=== PATIENT | male | born 1935 | race Caucasian/White ===

== ENCOUNTER 2020-01-09 08:50 | Outpatient (CLI) | payer OTHER, SELFPAY ==
--- NOTE | 2020-01-09 | CT_ITS ---
WS: [id number] CT CHEST TECHNIQUE: Contrast enhanced CT of the chest with coronal and sagittal reformatted images. CLINICAL INFORMATION: PULMONDARY NODULE AND ANEURYSM W/ CHEST PAIN COMPARISON: CT chest 9 20,019 DLP: 801.[address] scans at [facility] use at least one of these dose optimization techniques: automat ed exposure control; mA and/or kV adjustment per patient size (includes targeted exams where dose is matched to clinical indication); or iterative reconstruction. FINDINGS: Mild chronic emphysematous changes. Hyperinflation. Pulmonary nodule in the posterior right upper ape x has increased in size slightly 14.8 x 13.6 mm compared to 12 x 10 mm. This abuts the pleura posteri lucie. Scattered areas of fibrosis. No acute pulmonary infiltrates. Cardiomegaly. Aortic and coronary calcification. No mediastinal or hilar lymphadenopathy. Stable tort uous ectatic thoracic aorta. Stable dissection involving the descending thoracic aorta with aneurysma l dilatation measuring 4.9 x 5.4 cm extending into the upper abdominal aorta. This is not significant ly changed. Stable hepatic cysts. Largest in left hepatic lobe measuring 2.1 CM. Partially visualized renal cysts . Adrenal glands appear normal. CT/CT chest w con* [id number] IMPRESSION: 1. Pulmonary nodule at the right lung apex measures a few millimeters larger today 14.8 x 13.6 mm compared to 12 x 10 mm previous. Recommend 6 month follow- up. 2. No mediastinal or hilar lymphadenopathy. 3. Stable descending thoracic aorta dissection extends into the upper abdomina l aorta appears unchanged. 4. Stable hepatic and partially visualized renal cysts.
[2020-01-09] MEDS: iodixanol 320 mg/mL 100mL Btl IV (09:43)
== END 2020-01-09 08:51 | disposition home or self-care (01) ==
LOC: RADWPI 08:55
PROVIDERS: Family Provider Family Medicine; Visit Provider Family Medicine
DX: R91.1 Solitary pulmonary nodule (principal); R07.9 Chest pain, unspecified; N28.1 Cyst of kidney, acquired; K76.89 Other specified diseases of liver
CPT/HCPCS: 71260; Q9967

== ENCOUNTER 2020-01-12 08:42 | Outpatient (CLI) | payer OTHER, SELFPAY ==
--- NOTE | 2020-01-12 08:58 | CT_ITS ---
WS: [id number] CT ANGIOGRAPHY ABDOMEN AORTA HISTORY: ABDOMINAL AORTIC ANEURYSM, dissection follow-up. TECHNIQUE: CT angiogram with MIP imaging is performed during IV injection. Reformation images reviewe d. All CT scans at [facility] use at least one of these dose optimization techniques: auto mated exposure control; mA and/or kV adjustment per patient size (includes targeted exams where dose is matched to clinical indication); or iterative reconstruction. CONTRAST: Visipaque 320; 95 mL IV. DLP: 2092.92 mGycm COMPARISON: 02/25/2013 Chronic emphysema at the lung bases. Moderate enlargement of the heart chambers. Abdominal aorta: Dissection is first evident in the distal thoracic aorta, 2 to 3 cm above the diaphr agm and extends inferiorly through the abdominal aorta into the proximal RIGHT common iliac artery. A s compared to the prior study probably not a significant increase in extent of the dissection. False and true lumens are both opacified. False lumen supplies the celiac axis and the renal arteries. Ther e is good enhancement of the kidneys. Bilateral renal artery stents are both opacified. Kidneys are e nhancing normally. There are several bilateral renal cysts with no solid mass. The largest cyst from the lower pole of the RIGHT kidney measures 4.8 cm. Maximum diameter of the aorta is suprarenal measu ring 4.7 cm. Similar measurement of 4.4 cm on the prior study indicating a very slight increase in si ze. Aorta is tortuous and ectatic with heavy calcified plaque. Hepatic cysts. No solid mass. Gallbladder is negative. Spleen is abnormal with granulomata and lobula ricci. Similar to the prior study. Atrophic pancreas. No adrenal mass. Visualized GI tract demonstrates constipation. No adenopathy or ascites. No periaortic fluid. Prostate seed implants on the senior field service engineer radiograph. Moderate LEFT convex curvature lumbar spine. Severe l oss of disc space at L1-[address]/CT angio abdomen [id number] IMPRESSION: 1. Type B aortic dissection is stable since 02/25/2013. 2. Mild increase in size of the suprarenal aorta from 4.4 cm to 4.7 cm. Heavy calcified plaque. 3. True and false lumens of the dissection are enhancing.
== END 2020-01-12 08:43 | disposition home or self-care (01) ==
LOC: RADWPI 08:43
PROVIDERS: Family Provider Family Medicine; Visit Provider Family Medicine
DX: I71.4 Abdominal aortic aneurysm, without rupture (principal)
CPT/HCPCS: 74175; Q9967

== ENCOUNTER 2020-03-09 07:26 | Outpatient (CLI) | payer OTHER, SELFPAY ==
[2020-03-09 07:45] VITALS: BMI 28.1
--- NOTE | 2020-03-09 07:56 | ECG_ITS ---
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 Interpretive Statements NAME OF STUDY: LEXISCAN SESTAMIBI STRESS TEST INDICATION: [Chest Pain] Procedure: At the baseline, blood pressure was 127/82 mmHg with a heart rate of 50 bpm. The electrocardiogram showed normal sinus rhythm, left axis deviation, incomplete right bundle branch block with specific ST-T wave changes. The Lexiscan was infused over a period of 20 seconds. A total of 0.4 mg of Lexiscan was infused. The stress phase was continued for a total of 5 minutes. Heart rate at the end of stress phase was 62 bpm, with a blood pressure of 126/60 mmHg. The EKG at the peak infusion revealed sinus rhythm with no significant ST-T wave changes. Patient had occasional PVCs. Sestamibi was injected 20 seconds after the Lexiscan infusion. Blood pressure at the end of recovery phase was 127/70 mmHg with a heart rate of 59 bpm. EKG demonstrated PVCs. Conclusion: 1. Normal EKG response to Lexiscan infusion. 2. No Lexiscan induced chest pain or cardiac arrhythmia. 3. Normal blood pressure and heart rate response. 4. Sestamibi/sestamibi perfusion scan pending; see separate report. Electronically Signed On 03-09-2020 10:07:30 ELECTRICIAN SUBSTATION SUPERVISOR by Star Casillas M.D. [email or web address]
--- NOTE | 2020-03-09 07:56 | NMCV_ITS ---
NM tierra perf SPECT r/s* [id number] Yaron Reyes Age: 84 Gender: M : 1935 Exam Date: 03/09/2020 08:42 Ordering Phys: Star Casillas M.D ([email or web address]) Technologist: NINA Vera Exam Location: [facility] Indications: CHEST PAIN STRESS TEST [facility] IMAGE PROTOCOL Rest/Stress 1 Lexiscan Day Radiopharmaceutical Dose (mCi) Administration Site Administered by Rest: Tc-99m 10.3 IV NINA Vera Sestamibi Stress:Tc-99m 31.8 IV NINA Bledsoe Sestamibi Rest: 09-Mar-2020 60 Discovery 630 Stress: 09-Mar-2020 30 Discovery 630 0.4mg Lexiscan. Images obtained in supine and prone position. SPECT RESULTS Technical Quality: Excellent Raw Data Analysis: Normal Image Corrections: No attenuation or motion correction applied Summed Stress Score: 3 Summed Rest Score: 2 Summed Difference Score: 1 PERFUSION FINDINGS There is a moderate-sized, severe in intensity fixed perfusion defect in the apical lateral wall. This could represent old infarct. There is some randy- infarct ischemia noted. FUNCTIONAL RESULTS (calculated via Gated SPECT) Stress Image LV EF (%): 59 Stress EDV (mL):162 TID: 0.95 Stress ESV (mL):66 FUNCTIONAL FINDINGS: There is normal left ventricular systolic function. IMPRESSIONS 1. Myocardial perfusion defect is noted in apical lateral wall and is fixed with some periinfarct ischemia. 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 2. LV systolic function is normal with EF of 59%. Star Casillas MD (Electronically Signed) Final Date: 16 March 2020 16:38 S
--- NOTE | 2020-03-09 09:22 | SUR.PREOP ---
Patient reports no pain or discomfort prior to the start of the procedure.
[2020-03-09] MEDS: regadenoson 0.4 Mg/5 ml Syringe IVP (09:36)
[2020-03-09 09:47] VITALS: BP 127/70; PULSE 59
== END 2020-03-09 07:27 | disposition home or self-care (01) ==
LOC: RAD 07:30 → CDL 07:38
PROVIDERS: PCP Family Medicine; Visit Provider Internal Medicine
DX: R07.9 Chest pain, unspecified (principal)
CPT/HCPCS: 78452; 93017; A9500; J2785

== ENCOUNTER 2020-06-02 09:43 | Day surgery (SDC) | payer OTHER, SELFPAY ==
[2020-05-31 15:08] VITALS: BMI 30.2
[2020-06-02 09:54] VITALS: BP 123/67; PULSE 64; RESP 16; TEMP 36.3; O2SAT 98
[2020-06-02] MEDS: sodium chloride 0.9% 1,000 ML 30 ML IV (10:10)
--- NOTE | 2020-06-02 10:29 | ANES.PREANE2 ---
Pre-Anesthetic Assessment Pre-Anesthetic Assessment: Height/Weight: Height 1.7 m Weight 87.543 kg Temp Pulse Resp BP Pulse Ox 97.3 F L 64 16 123/67 98 06/02/20 09:54 06/02/20 09:54 06/02/20 09:54 06/02/20 09:54 06/02/20 09:54 Preop Diagnosis: Bleeding per rectum Proposed Procedure: Operation Date: 06/02/20 09:45 Proposed Procedures p EGD 70159 11182 D64.9 R19.4(Not Applicable) - Stephon Martinez MD s Colonoscopy(Not Applicable) - Stephon Martinez MD Was Beta Henny taken within 24 hours: Yes Last intake: Intake Last Liquid Date 06/01/20 Last Liquid Time 21:00 Last Solid Date 06/01/20 Last Solid Time 08:00 Social: Social History: No alcohol and No tobacco Exam: Pre-Anes Outpt Exam: alert, oriented x 3, clear to auscultation bilaterally and regular rate & rhythm Airway: Submandibular: WNL Cervical ROM: WNL MP: 2 CV/HEM: CV/HEM: HTN and PVD Comments: Aortic dissection repair Metabolic: Metabolic: DM Anesthetic Plan: ASA status: 3 Anesthesia: MAC Risk of > 500 ml blood loss (7ml/kg in children): No Meds/Allergies Current Medications: Current Medications Generic Name Dose Route Start Last Admin Trade Name Freq PRN Reason Stop Dose Admin Sodium Chloride 1,000 mls @ 30 ml s/hr 06/02/20 09:45 06/02/20 10:10 Sodium Chloride 0.9% IV 30 mls/hr .Q24H AMY Administration PFSH Anesthesia PFSH: Medical History Diabetes History of aortic dissection Hyperlipidemia Hypertension Surgical History S/P aortic dissection repair Social History Smoking and tobacco status: former smoker Alcohol intake: current Alcohol intake frequency: few times a month Alcohol type: beer Desire information about alcohol rehabilitation?: No Data Anesthesia Cardiac Studies: No Data to Display
--- NOTE | 2020-06-02 10:48 | W.PM.OPSUD ---
Surgery/Procedure H&P Update DATE OF PROCEDURE: June 02, 2020 DATE H&P PERFORMED: 05/10/20 H&P UPDATE INFORMATION: I have reviewed H&P completed within last 30 days, I have examined patient prior to procedure and No changes to prior documentation PREOP DIAGNOSIS: Bleeding per rectum PRIMARY INDICATION FOR PROCEDURE: The same PLANNED PROCEDURE: Operation Date: 06/02/20 09:45 Proposed Procedures p EGD 12693 15771 D64.9 R19.4(Not Applicable) - Stephon Martinez MD s Colonoscopy(Not Applicable) - Stephon Martinez MD
[2020-06-02 11:56] VITALS: BP 123/73; PULSE 57; RESP 16; TEMP 36.1; O2SAT 96
--- NOTE | 2020-06-02 11:56 | ANE.PACU2 ---
Inpatient post-anesthesia follow up: Airway intact: Yes Vital signs: Temperature 97.3 F Pulse Rate 64 Respiratory Rate 16 Blood Pressure 123/67 Pulse Oximetry 98 Oxygen Delivery Me thod Room Air Oxygen Flow Rate Fraction of Inspir ed Oxygen Hydration adequate: Yes Nausea and vomiting: No Pain level: 1 Mental status: Baseline
--- NOTE | 2020-06-02 11:58 | ANE.PACU2 ---
Inpatient post-anesthesia follow up: Airway intact: Yes Vital signs: Temperature 97 F Pulse Rate 57 Respiratory Rate 16 Blood Pressure 123/73 Pulse Oximetry 96 Oxygen Delivery Me thod Room Air Oxygen Flow Rate Fraction of Inspir ed Oxygen Hydration adequate: Yes Nausea and vomiting: No Pain level: 1 Mental status: Baseline
[2020-06-02 12:14] VITALS: BP 128/72; PULSE 52; RESP 16; O2SAT 98
== END 2020-06-02 12:32 | disposition home or self-care (01) ==
PROVIDERS: PCP Family Medicine; Visit Provider Surgery
PROC: 0DJ08ZZ Inspection of Upper Intestinal Tract, Via Natural or Artificial Opening Endoscopic (ICD-10-PCS; CPT 43235; principal; 2020-06-02 09:45)
PROC: 0DJD8ZZ Inspection of Lower Intestinal Tract, Via Natural or Artificial Opening Endoscopic (ICD-10-PCS; CPT 45378; 2020-06-02 09:45)
DX: K62.5 Hemorrhage of anus and rectum (principal); K57.30 Diverticulosis of large intestine without perforation or abscess without bleeding; D12.2 Benign neoplasm of ascending colon; K21.00 Gastro-esophageal reflux disease with esophagitis, without bleeding; K22.70 Barrett's esophagus without dysplasia; K29.70 Gastritis, unspecified, without bleeding; I10 Essential (primary) hypertension; E11.9 Type 2 diabetes mellitus without complications; E78.5 Hyperlipidemia, unspecified; Z87.891 Personal history of nicotine dependence
CPT/HCPCS: 12345; 43239; 45380; 88305; J2704; J7030

== ENCOUNTER 2020-09-30 07:59 | Outpatient (CLI) | payer OTHER, SELFPAY ==
--- NOTE | 2020-09-30 08:30 | CT_ITS ---
WS: [id number] CTA ABDOMEN PELVIS TECHNIQUE: Noncontrast plus contrast enhanced CTA of the abdominal aorta with coronal and sagittal re formatted images and additional MIP Images. CLINICAL INFORMATION: I71.4 - Abdominal aortic aneurysm, without rupture COMPARISON: CTA January 12, 2020 DLP: 1883.[address] scans at [facility] use at least one of these dose optimization techniques: automat ed exposure control; mA and/or kV adjustment per patient size (includes targeted exams where dose is matched to clinical indication); or iterative reconstruction. FINDINGS: Again seen is the type B aortic dissection with aneurysmal dilatation of the lower thoracic and upper abdominal aorta. Dissection extends into the distal thoracic aorta and into the proximal r ight common iliac artery unchanged from previous. Contrast opacification of the true and false lumens . Celiac axis, SMA, HERMAN, and renal arteries arise from the false lumen and are normally opacified. No rmal renal parenchymal enhancement. Bilateral renal artery stents.Stable aneurysmal dilatation of the lower thoracic and suprarenal abdominal aorta measuring 4.7 x 4.9 cm Bilateral renal cysts. Largest cyst lower pole right kidney measures 5.0cm stable from previous Prost ate brachytherapy implants. Lumbar curve convex left. Incidental hepatic cysts. Normal gallbladder. S plenic granulomas. Fatty atrophy of the pancreas. Normal adrenal glands. No abdominal or pelvic lymph adenopathy. Lung bases are well aerated. Sigmoid diverticulosis. Fat-containing umbilical hernia. CT/CT angio abdomen pelvis [id number] IMPRESSION: 1. Tortuous abdominal aorta with stable type B aortic dissection. This is unch anged since January 12, 2020. 2. Stable aneurysmal dilatation of the lower thoracic and suprarenal abdominal aorta measuring 4.7 x 4.9cm 3. Contrast opacification of the true and false lumens. Celiac axis, SMA, HERMAN, and renal arteries arise from the false lumen and are normally opacified. 4. Normal renal parenchymal enhancement. Bilateral renal artery stents.
[2020-09-30 08:33] LABS: Blood Urea Nitrogen 24 mg/dL (8-23)
[2020-09-30] MEDS: iohexol 350 mg/mL 100 mL Btl IV (08:51)
== END 2020-09-30 08:00 | disposition home or self-care (01) ==
PROVIDERS: PCP Family Medicine; Visit Provider Thoracic Surgery (Cardiothoracic Vascular Surgery)
DX: I71.4 Abdominal aortic aneurysm, without rupture (principal); Q25.46 Tortuous aortic arch; I71.2 Thoracic aortic aneurysm, without rupture
CPT/HCPCS: 74174; 82565; 84520; Q9967

== ENCOUNTER 2020-10-27 08:57 | Outpatient (CLI) | payer OTHER, SELFPAY ==
--- NOTE | 2020-10-27 09:00 | CT_ITS ---
WS: [id number] CT CHEST TECHNIQUE: Contrast enhanced CT of the chest with coronal and sagittal reformatted images. CLINICAL INFORMATION: PULMONARY NODULE COMPARISON: CT January 09, 2020 DLP: 894.[address] scans at use at least one of these dose optimization techniques: automat ed exposure control; mA and/or kV adjustment per patient size (includes targeted exams where dose is matched to clinical indication); or iterative reconstruction. FINDINGS: Again seen is the right upper lobe apical subpleural noncalcified pulmonary nodule today me asuring 14.9 x 14.3 mm slightly more prominent compared to previous. This is increased in size since 2019 recommend further evaluation with PET/CT. This is not amenable to CT-guided biopsy due to high a pical location. Thoracic aortic calcification. No mediastinal or hilar lymphadenopathy. Coronary calcification. No mediastinal or hilar lymphadenopathy. Cardiomegaly. Stable tortuous ectatic thoracic aorta. Stable dissection involving the descending thoracic aorta with aneurysmal dilatation measuring 4.9 x 5.5 cm extending into the upper abdominal aorta. This is not significantly changed. Stable hepatic cysts.Pa rtially visualized renal cysts. Adrenal glands appear normal. CT/CT chest w con* [id number] IMPRESSION: 1. Again seen is the right upper lobe apical subpleural noncalcified pulmonary nodule today measuring 14.9 x 14.3 mm slightly more prominent compared to prev ious. This is increased in size since 2019 and recommend further evaluation wit h PET/CT. This is not amenable to CT-guided biopsy due to high apical location 2. No mediastinal or hilar lymphadenopathy. 3. Stable descending thoracic aortic dissection. 4. Stable hepatic and partially visualized renal cyst.
[2020-10-27] MEDS: iohexol 300 mg/mL 100 mL Btl IV (09:18)
== END 2020-10-27 08:58 | disposition home or self-care (01) ==
LOC: RADWPI 08:58
PROVIDERS: PCP Family Medicine; Visit Provider Thoracic Surgery (Cardiothoracic Vascular Surgery)
DX: R91.1 Solitary pulmonary nodule (principal); N28.1 Cyst of kidney, acquired; K76.89 Other specified diseases of liver
CPT/HCPCS: 71260; Q9967

== ENCOUNTER 2021-01-15 11:02 | Emergency (ER) | payer OTHER, SELFPAY ==
[2021-01-15] VITALS (11 sets, daily range): BP systolic 102–149; BP diastolic 61–88; PULSE 51–65; RESP 18–23; TEMP 36.4–36.9; O2SAT 94–96; BMI 30.5
--- NOTE | 2021-01-15 11:10 | CTR_ITS ---
PROCEDURE INFORMATION: Exam: CT Abdomen And Pelvis With Contrast Exam date and time: 01/15/2021 11:10 AM Age: 85 years old Clinical indication: Abdominal pain. Prior abdominal aortic aneurysm dissection repair. Complains of lower abdominal pain and diarrhea. TECHNIQUE: Imaging protocol: Computed tomography of the abdomen and pelvis with contrast. Radiation optimization: All CT scans at this facility use at least one of these dose optimization techniques: automated exposure control; mA and/or kV adjustment per patient size (includes targeted exams where dose is matched to clinical indication); or iterative reconstruction. Contrast material: OMNI 300; Contrast volume: 95 ml; Contrast route: INTRAVENOUS (IV); COMPARISON: CT angio abdomen pelvis [id number] 09/30/2020 8:40 AM RADIATION DOSE METRICS: Total DLP (mGy-cm): 1582.07 FINDINGS: Lungs: There is subpleural scarring at the lung bases. No pericardial effusion. Small hiatal hernia. Liver: Simple hepatic cysts measure up to 2.1 cm. Hepatic hypodensities measuring less than 5 mm are too small to accurately characterize and require no follow-up. Gallbladder and bile ducts: The gallbladder is unremarkable. Pancreas: The pancreas is unremarkable. Spleen: The spleen is unremarkable. Adrenal glands: The adrenal glands are unremarkable. Kidneys and ureters: Simple renal cysts measure up to 5.4 cm. An indeterminate right renal lesion measures 1.1 cm. An indeterminate left renal lesion measures 1.8 cm. No hydronephrosis is seen. 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 There is no evidence of rupture. Bilateral renal artery stents are noted. Stomach and bowel: The stomach and small bowel are unremarkable.. Colonic diverticulosis without evidence of acute diverticulitis. There is wall thickening involving the splenic flexure and descending colon suspicious for infectious or inflammatory colitis. Appendix: The appendix is not identified. Intraperitoneal space: No free intraperitoneal air is seen. 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 An aortic dissection is noted extending the length of the abdominal aorta and further extension into the right common iliac artery. This appears similar to prior. There is no evidence of rupture. Lymph nodes: No retroperitoneal lymphadenopathy. Urinary bladder: The bladder is unremarkable. Reproductive: Prostate brachytherapy seeds are noted. Bones/joints: No acute fracture is identified. Soft tissues: Small fat containing left inguinal hernia. Small fat containing inguinal hernia. CT/CT abdomen pelvis w con* [id number] IMPRESSION: 1. There is wall thickening involving the splenic flexure and descending colon suspicious for infectious or inflammatory colitis. 2. 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 An aortic dissection is noted extending the length of the abdominal aorta and further extension into the right common iliac artery. This appears similar to prior. There is no evidence of rupture. 3. 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 There is no evidence of rupture. 4. Indeterminate bilateral renal lesions. Recommend nonemergent renal mass protocol MR abdomen with and without contrast to further assess. 5. Colonic diverticulosis without evidence of acute diverticulitis. COMMENTS: Consistent with the [employer]'s Incidental Findings Committee white paper (J Am Conchis Radiol 2018): Any incidental renal lesion less than 1 cm or classified as too small to characterize, or any incidental cystic renal lesion characterized as simple-appearing, is likely benign. No follow-up imaging is recommended for these lesions per consensus recommendations based on imaging criteria. Radiation Dose CTDIVOL = (mGy): DLP = 1582.07 (mGy-cm)
--- NOTE | 2021-01-15 12:02 | W.ED.ABDPA2 ---
HPI - Abdominal Pain General: Chief Complaint: Abdominal Pain Stated Complaint: LOW ABD PAIN; DIARRHEA Time Seen by Provider: 01/15/21 11:09 History of Present Illness: HPI narrative: 85-year-old male presents emergency room complaining of abdominal pain for the last 3 months intermittently last few days is 1 more problem some. 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 He has been having some diarrhea recently. Denies any hematochezia although he did self some earlier this year which triggered the evaluation with the colonoscopies. Denies any dysuria urgency or frequency. MD elicited complaint: abdominal pain Pertinent past history: none Onset (ago): month(s) (3) Pain Consistency: intermittent Location: None Severity: moderate Quality: cramping and aching Radiation: none Exacerbating factors: nothing Relieving factors: nothing Associated Symptoms: Reports anorexia, bloating, diarrhea, hematochezia (Evaluated in May this year has not recurred), nausea and poor appetite; Denies belching, change in bowel habits, change in stool character, chills, coffee ground emesis, constipation, GI cramping, dyspepsia, dysuria, excessive flatus, fever(s), heartburn, hematuria, hematemesis, fecal incontinence, loose stools, melena, syncope and vomiting Review of Systems Const: Denies: fever(s) or chills ENMT: Denies: throat pain, ear or mastoid pain, nasal discharge or nasal congestion Card: Denies: syncope Resp: Denies: dyspnea, productive cough or non-productive cough GI: Reports: nausea, diarrhea, bloating and hematochezia (Evaluated in May this year has not recurred); Denies: vomiting, hematemesis, coffee ground emesis, heartburn, constipation, GI cramping, belching, excessive flatus, fecal incontinence, change in bowel habits, change in stool character or melena : Denies: dysuria or hematuria Skin/Breast: Denies: rash or pruritus PFSH ED PFSH: Medical History Diabetes History of aortic dissection Hyperlipidemia Hypertension Right upper lobe pulmonary nodule Surgical History S/P aortic dissection repair Social History Smoking and tobacco status: former smoker Alcohol intake: current Alcohol intake frequency: few times a month Alcohol type: beer Desire information about alcohol rehabilitation?: No Physical Exam Const: COMMON NORMALS: no acute distress GENERAL APPEARANCE: cooperative and comfortable ORIENTATION/CONSCIOUSNESS: Yes awake, Yes oriented to person, Yes oriented to place and Yes oriented to time HENMT: COMMON NORMALS: normocephalic, atraumatic and hearing grossly normal bilaterally HEAD & SCALP: normocephalic and atraumatic Neck/C-Spine: COMMON NORMALS: no JVD Resp: COMMON NORMALS: normal respiratory effort, No retractions, No use of accessory muscles and clear to auscultation bilaterally AUSCULTATION: clear to auscultation bilaterally Cardio: COMMON NORMALS: no JVD, regular rate, regular rhythm and No murmurs present (Cardio) RATE: regular rate RHYTHM: regular rhythm GI: COMMON NORMALS: Soft to palpation and No hepatosplenomegaly present AUSCULTATION: Yes normoactive bowel sounds PALPATION: Yes Soft to palpation, No Tenderness to palpation present (GI), No Guarding due to palpation present (GI) and Yes No hepatosplenomegaly present Extremity: COMMON NORMALS: normal to inspection, capillary refill normal, no clubbing, cyanosis or edema, no calf tenderness and no pedal edema Neuro: SENSORIUM/ORIENTATION: Yes oriented to person, Yes oriented to place and Yes oriented to time Skin: COMMON NORMALS: no rashes or lesions noted GENERAL SKIN EXAM: no rashes or lesions noted Course Vital Signs: Vital signs: Vital Signs Temperature 98.4 F 01/15/21 16:50 Pulse Rate 65 01/15/21 16:50 Respiratory Rate 18 01/15/21 16:50 Blood Pressure 149/88 01/15/21 16:50 Pulse Oximetry 94 01/15/21 16:50 MDM - Abdominal Pain MDM Narrative: Medical decision making narrative: Labs reviewed EKG reviewed as on the chart. Believe he has a mild colitis there is no sign of any tumor. When I reviewed the previous colonoscopy colonoscopy made mention of a tubular adenoma but no frankly cancerous findings. He also had Figueroa's esophagus on his EGD. We will start him on Cipro and Flagyl clear liquid diet advance as tolerated follow-up with his primary care. Return if has further problems Lab Data: Labs: Lab Results 01/15/21 01/15/21 01/15/21 11:00 13:33 13:33 WBC 13.8 10^3/uL H 10 ^3/uL (4.0-10.0) RBC 3.66 10^6/uL L 10 ^6/uL (4.1-5.3) Hgb 11.3 g/dL L g/dL (11.7-16.6) Hct 33.5 % L % (42.0-52.0) MCV 91.5 fl fl (80-94) MCH 30.9 pg pg (28.0-34.0) MCHC 33.7 g/dL g/dL (30.0-36.0) RDW 13.5 % % (12.1-15.1) Plt Count 177 10^3/cmm 10^3 /cmm (130-400) MPV 10.0 fL fL (7.4-10.4) Neut % (Auto) 77.7 % % Lymph % (Auto) 11.8 % % [place] % (Auto) 9.4 % % Eos % (Auto) 0.4 % % Baso % (Auto) 0.3 % % Neut # (Auto) 10.76 10^3/uL H 1 0^3/uL (1.8-7.7) Lymph # (Auto) 1.6 10^3/uL 10^3/ uL (0.8-4.8) [place] # (Auto) 1.3 10^3/uL H 10^ 3/uL (0.2-0.9) Eos # (Auto) 0.1 10^3/uL 10^3/ uL (0.0-0.8) Baso # (Auto) 0.0 10^3/uL 10^3/ uL (0.0-0.1) Nucleated RBC % (a uto) 0 % % Nucleated RBCs # 0.0 /100WBC /100W BC Sodium 135 mmol/L L mmol /L (136-145) Potassium 4.0 mmol/L mmol/L (3.5-5.1) Chloride 101 mmol/L mmol/L (98-107) Carbon Dioxide 24 mmol/L mmol/L (22-29) Anion Gap 14.0 (5-19) BUN 20 mg/dL mg/dL (8-23) Creatinine 1.0 mg/dL mg/dL (0.7-1.2) GFR Calculation Not Reportable Glucose 183 mg/dL H mg/dL (65-115) Calculated Osmolal ity 287 mOsm/kg mOsm/ kg (285-295) Lactic Acid Calcium 9.0 mg/dL mg/dL (8.5-10.5) Total Bilirubin 0.4 mg/dL mg/dL (0.15-1.2) AST 20 U/L U/L (0-40) ALT 18 U/L U/L (0-41) Alkaline Phosphata se 72 IU/L IU/L (40-130) Creatine Kinase 138 U/L U/L (39-308) Total Protein 6.4 g/dL L g/dL (6.6-8.7) Albumin 3.8 g/dL g/dL (3.5-5.2) Globulin 2.6 g/dL g/dL (1.3-4.6) Lipase 20 U/L U/L (13-60) Urine Color Yellow (Yellow) Urine Appearance Clear (CLEAR) Urine pH 7 (5-7) Ur Specific Gravit y 1.005 (1.005-1.030) Urine Protein 1+ H (Negative) Urine Glucose (UA) Norm (Normal) Urine Ketones Negative (Negative) Urine Blood Neg (Negative) Urine Nitrate Negative (Negative) Urine Bilirubin 1+ H (Negative) Urine Urobilinogen 1 mg/dL H mg/dL (Negative) Ur Leukocyte Dee ase Negative (Negative) Urine RBC None /hpf /hpf (0-2) Urine WBC None /hpf /hpf (0-5) Ur Squamous Epith Cells None /hpf /hpf (0-5) Amorphous Sediment Not Reportable Urine Bacteria None /hpf /hpf (NONE) Hyaline Casts 0-4 /lpf H /lpf Urine Mucus Trace /hpf /hpf 01/15/21 13:33 WBC RBC Hgb Hct MCV MCH MCHC RDW Plt Count MPV Neut % (Auto) Lymph % (Auto) [place] % (Auto) Eos % (Auto) Baso % (Auto) Neut # (Auto) Lymph # (Auto) [place] # (Auto) Eos # (Auto) Baso # (Auto) Nucleated RBC % (a uto) Nucleated RBCs # Sodium Potassium Chloride Carbon Dioxide Anion Gap BUN Creatinine GFR Calculation Glucose Calculated Osmolal ity Lactic Acid 1.8 mmol/L mmol/L (0.5-2.2) Calcium Total Bilirubin AST ALT Alkaline Phosphata se Creatine Kinase Total Protein Albumin Globulin Lipase Urine Color Urine Appearance Urine pH Ur Specific Gravit y Urine Protein Urine Glucose (UA) Urine Ketones Urine Blood Urine Nitrate Urine Bilirubin Urine Urobilinogen Ur Leukocyte Dee ase Urine RBC Urine WBC Ur Squamous Epith Cells Amorphous Sediment Urine Bacteria Hyaline Casts Urine Mucus Discharge Plan Discharge Patient Disposition: Home Clinical Impression: Colitis Condition: Stable Prescriptions: New Cipro 500 mg tablet 500 mg PO BID Qty: 14 RF: 0 Flagyl 500 mg tablet 500 mg PO BID 7 Days Qty: 14 RF: 0 No Action amlodipine 5 mg tablet 5 mg PO DAILY RF: 0 atenolol 50 mg tablet 50 mg PO DAILY RF: 0 atorvastatin 20 mg tablet 20 mg PO DAILY RF: 0 brimonidine 0.15 % drops 1 drop ophthalmic (eye) Q8H RF: 0 bupropion HCl 300 mg tablet extended release 24 hr 300 mg PO QAM RF: 0 lisinopril 40 mg tablet 40 mg PO DAILY RF: 0 metformin 500 mg tablet 250 mg PO BID RF: 0 tamsulosin 0.4 mg capsule 0.4 mg PO DAILY RF: 0 famotidine 10 mg tablet 10 mg PO DAILY RF: 0 Discharge Orders: Discharge ED (Routine); Ordered 01/15/21 Ordered By: Zay Oshea Referrals: Ruthy Carrillo MD [Primary Care Provider] - Discharge Diet: Usual diet Discharge Activity: Resume usual activity Patient Instructions: Opioid Safety Coding Level of Care Code ED Product Marketing Programs Manager for Chg Fwd Exam Comprehensive
[2021-01-15 12:05] LABS: Add Urine Microscopic? YES; Bilirubin Urine 1+ (Negative); Blood Urine Neg (Negative); Glucose Urine UA Norm (Normal); Ketones Urine Negative (Negative); Leukocyte Esterase Urine Negative (Negative); Nitrate Urine Negative (Negative); Protein Urine 1+ (Negative); Specific Gravity, Urine 1.005 (1.005-1.030); Urine Appearance Clear (CLEAR); Urine Color Yellow (Yellow); Urobilinogen Urine 1 mg/dL (Negative); pH Urine 7 (5-7)
[2021-01-15 12:07] LABS: Hyaline Casts Urine 0-4 /lpf; Mucus Urine TRACE /hpf
[2021-01-15 12:08] LABS: Add Urine Culture? No
[2021-01-15 13:46] LABS: Basophils % 0.3 %; Eosinophils # 0.1 10^3/uL (0.0-0.8); Eosinophils % 0.4 %; Hematocrit 33.5 % (42.0-52.0); Hemoglobin 11.3 g/dL (11.7-16.6); Lymphocytes # 1.6 10^3/uL (0.8-4.8); Lymphocytes % 11.8 %; Mean Corpuscular HGB Conc 33.7 g/dL (30.0-36.0); Mean Corpuscular Hemoglobin 30.9 pg (28.0-34.0); Mean Corpuscular Volume 91.5 fl (80-94); Monocytes # 1.3 10^3/uL (0.2-0.9); Monocytes % 9.4 %; Neutrophils # 10.76 10^3/uL (1.8-7.7); Neutrophils % 77.7 %; Nucleated Red Blood Cells % 0 %; Platelet Count 177 10^3/cmm (130-400); Red Blood Count 3.66 10^6/uL (4.1-5.3); Red Cell Distribution Width 13.5 % (12.1-15.1); White Blood Count 13.8 10^3/uL (4.0-10.0)
[2021-01-15 14:08] LABS: Lactic Sepsis W/Reflex 1.8 mmol/L (0.5-2.2)
[2021-01-15 14:23] LABS: Alanine Aminotransferase 18 U/L (0-41); Albumin Level 3.8 g/dL (3.5-5.2); Alkaline Phosphatase 72 IU/L (40-130); Aspartate Amino Transferase 20 U/L (0-40); Blood Urea Nitrogen 20 mg/dL (8-23); Carbon Dioxide 24 mmol/L (22-29); Chloride 101 mmol/L (98-107); Creatine Phosphokinase 138 U/L (39-308); Globulin 2.6 g/dL (1.3-4.6); Glucose 183 mg/dL (65-115); Lipase 20 U/L (13-60); Osmolality Calculated 287 mOsm/kg (285-295); Sodium 135 mmol/L (136-145); Total Bilirubin 0.4 mg/dL (0.15-1.2); Total Protein 6.4 g/dL (6.6-8.7)
[2021-01-15] MEDS: iohexol 300 mg/mL 100 mL Btl IV (14:38)
--- NOTE | 2021-01-15 14:38 | ECG_ITS ---
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 Measurements Intervals [place] Rate: 48 P: 8 [place]: 243 QRS: -55 QRSD: 165 T: -48 QT: 505 QTc: 451 Interpretive Statements SINUS BRADYCARDIA WITH FIRST DEGREE AV BLOCK RIGHT BUNDLE BRANCH BLOCK [120+ ms QRS DURATION, UPRIGHT V1, 40+ ms S IN I/aVL/V4/V5/V6] LEFT ANTERIOR FASCICULAR BLOCK [QRS AXIS <= -45, QR IN I, RS IN II] VOLTAGE CRITERIA FOR LVH [MEETS CRITERIA IN ONE OF: R(aVL), S(V1), R(V5), R(V5/V6)+S(V1)] MODERATE T-WAVE ABNORMALITY, CONSIDER LATERAL ISCHEMIA [-0.1+ mV T-WAVE IN I/aVL/V5/V6] Compared to ECG 06/13/2018 18:33:53 Right bundle-branch block now present T-wave abnormality still present Possible ischemia still present Electronically Signed On 01-15-2021 20:59:44 CDT by Star Casillas M.D. [email or web address]
--- NOTE | 2021-01-15 15:00 | ECG_ITS ---
[facility] Test Date: 2021-01-15 Pat Name: Yaron Ryees Department: Room: Gender: Male Director Investor Relations: : 1935 Requested By: Zay Reza Order Number: [id number] Sky MD: Star Casillas M.D. Measurements Intervals [place] Rate: 55 P: -44 [place]: 170 QRS: -55 QRSD: 164 T: -26 QT: 471 QTc: 454 Interpretive Statements SINUS BRADYCARDIA WITH OCCASIONAL SUPRAVENTRICULAR PREMATURE COMPLEXES RIGHT BUNDLE BRANCH BLOCK [120+ ms QRS DURATION, UPRIGHT V1, 40+ ms S IN I/aVL/V4/V5/V6] LEFT ANTERIOR FASCICULAR BLOCK [QRS AXIS <= -45, QR IN I, RS IN II] VOLTAGE CRITERIA FOR LVH [MEETS CRITERIA IN ONE OF: R(aVL), S(V1), R(V5), R(V5/V6)+S(V1)] POSSIBLE SEPTAL MYOCARDIAL INFARCTION , PROBABLY OLD [30 ms Q WAVE IN V1/V2] Compared to ECG 01/15/2021 11:24:13 First degree AV block no longer present T-wave abnormality no longer present Possible ischemia no longer present Myocardial infarct finding still present Electronically Signed On 01-15-2021 21:12:25 CDT by Star Casillas M.D. [id number]
== END 2021-01-15 16:51 | disposition home or self-care (01) ==
PROVIDERS: Emergency Provider Family Medicine; PCP Family Medicine
DX: K52.9 Noninfective gastroenteritis and colitis, unspecified (principal); Z79.84 Long term (current) use of oral hypoglycemic drugs; E11.9 Type 2 diabetes mellitus without complications; E78.5 Hyperlipidemia, unspecified; I10 Essential (primary) hypertension; Z87.891 Personal history of nicotine dependence
CPT/HCPCS: 74177; 80053; 81001; 82550; 83605; 83690; 85025; 93005; 99284; Q9967

== ENCOUNTER 2021-02-04 11:38 | Emergency (ER) | payer OTHER, SELFPAY ==
[2021-02-04] VITALS (7 sets, daily range): BP systolic 94–151; BP diastolic 64–82; PULSE 84–96; RESP 18; TEMP 36.8; O2SAT 94–99; BMI 30.5
[2021-02-04 13:53] LABS: Basophils # 0.1 10^3/uL (0.0-0.1); Basophils % 0.4 %; Eosinophils # 0.1 10^3/uL (0.0-0.8); Eosinophils % 0.6 %; Hematocrit 37.5 % (42.0-52.0); Hemoglobin 12.5 g/dL (11.7-16.6); Lymphocytes # 2.5 10^3/uL (0.8-4.8); Lymphocytes % 14.6 %; Mean Corpuscular HGB Conc 33.3 g/dL (30.0-36.0); Mean Corpuscular Hemoglobin 30.7 pg (28.0-34.0); Mean Corpuscular Volume 92.1 fl (80-94); Mean Platelet Volume 10.3 fL (7.4-10.4); Monocytes % 11.6 %; Neutrophils # 12.21 10^3/uL (1.8-7.7); Neutrophils % 72.2 %; Nucleated Red Blood Cells % 0 %; Platelet Count 226 10^3/cmm (130-400); Red Blood Count 4.07 10^6/uL (4.1-5.3); Red Cell Distribution Width 13.6 % (12.1-15.1); White Blood Count 16.9 10^3/uL (4.0-10.0)
[2021-02-04 14:14] LABS: Alanine Aminotransferase 15 U/L (0-41); Albumin Level 4.1 g/dL (3.5-5.2); Alkaline Phosphatase 75 IU/L (40-130); Anion Gap 16.8 (5-19); Aspartate Amino Transferase 16 U/L (0-40); Blood Urea Nitrogen 24 mg/dL (8-23); Calcium 9.4 mg/dL (8.5-10.5); Carbon Dioxide 25 mmol/L (22-29); Chloride 98 mmol/L (98-107); Globulin 3.3 g/dL (1.3-4.6); Glucose 115 mg/dL (65-115); Lipase 18 U/L (13-60); Osmolality Calculated 287 mOsm/kg (285-295); Potassium 3.8 mmol/L (3.5-5.1); Sodium 136 mmol/L (136-145); Total Bilirubin 0.6 mg/dL (0.15-1.2); Total Protein 7.4 g/dL (6.6-8.7)
--- NOTE | 2021-02-04 15:01 | W.ED.ABDPA2 ---
HPI - Abdominal Pain General: Chief Complaint: Abdominal Pain Stated Complaint: SEVERE LOWER ABD PAIN Time Seen by Provider: 02/04/21 14:49 History of Present Illness: HPI narrative: 85 yo male present with compliants of abd pain. Patient was seen on 5 with similar complaints there is concern of colitis on the CT at that time. Patient again voices a concern that he has colon cancer reviewed the records previously had a colonoscopy had a tubular adenoma had some Figueroa's esophagus. [facility]. He completed the oral antibiotics states he still having cramping and discomfort. No ally hematochezia some small amount of blood on the toilet paper when he wipes after bowel movement. MD elicited complaint: abdominal pain Onset (ago): week(s) Pain Consistency: intermittent Location: Diffuse Quality: cramping Radiation: none Migration to: no migration Exacerbating factors: nothing Relieving factors: nothing Associated Symptoms: Reports GI cramping, nausea and poor appetite; Denies anorexia, belching, bloating, change in bowel habits, change in stool character, chills, coffee ground emesis, constipation, diarrhea, dyspepsia, dysuria, excessive flatus, fever(s), heartburn, hematochezia, hematuria, hematemesis, fecal incontinence, loose stools, melena, syncope and vomiting Review of Systems Const: Denies: fever(s) or chills ENMT: Denies: throat pain, ear or mastoid pain, nasal discharge or nasal congestion Card: Denies: syncope Resp: Denies: dyspnea, productive cough or non-productive cough GI: Reports: nausea and GI cramping; Denies: vomiting, hematemesis, coffee ground emesis, heartburn, diarrhea, constipation, bloating, belching, excessive flatus, fecal incontinence, change in bowel habits, change in stool character, hematochezia or melena : Denies: dysuria or hematuria Skin/Breast: Denies: rash or pruritus PFSH ED PFSH: Medical History Diabetes History of aortic dissection Hyperlipidemia Hypertension Right upper lobe pulmonary nodule Surgical History S/P aortic dissection repair Social History (Reviewed 02/04/21 @ 15:29 by ALEJANDRINA Urrutia Smoking and tobacco status: former smoker Alcohol intake: current Alcohol intake frequency: few times a month Alcohol type: beer Desire information about alcohol rehabilitation?: No Physical Exam Const: COMMON NORMALS: no acute distress GENERAL APPEARANCE: cooperative and comfortable ORIENTATION/CONSCIOUSNESS: Yes awake, Yes oriented to person, Yes oriented to place and Yes oriented to time HENMT: COMMON NORMALS: normocephalic, atraumatic and hearing grossly normal bilaterally HEAD & SCALP: normocephalic and atraumatic Neck/C-Spine: COMMON NORMALS: no JVD Resp: COMMON NORMALS: normal respiratory effort, No retractions, No use of accessory muscles and clear to auscultation bilaterally AUSCULTATION: clear to auscultation bilaterally Cardio: COMMON NORMALS: no JVD, regular rate, regular rhythm and No murmurs present (Cardio) RATE: regular rate RHYTHM: regular rhythm GI: COMMON NORMALS: Soft to palpation and No hepatosplenomegaly present AUSCULTATION: Yes normoactive bowel sounds PALPATION: Yes Soft to palpation, No Tenderness to palpation present (GI), No Guarding due to palpation present (GI) and Yes No hepatosplenomegaly present Extremity: COMMON NORMALS: normal to inspection, capillary refill normal, no clubbing, cyanosis or edema, no calf tenderness and no pedal edema Neuro: SENSORIUM/ORIENTATION: Yes oriented to person, Yes oriented to place and Yes oriented to time Skin: COMMON NORMALS: no rashes or lesions noted GENERAL SKIN EXAM: no rashes or lesions noted Course Vital Signs: Vital signs: Vital Signs Temperature 98.3 F 02/04/21 12:10 Pulse Rate 84 02/04/21 15:08 Respiratory Rate 18 02/04/21 15:08 Blood Pressure 131/71 02/04/21 15:45 Pulse Oximetry 95 02/04/21 16:00 MDM - Abdominal Pain MDM Narrative: Medical decision making narrative: Mild diverticulitis will start Augmentin we had previously seen him about 2 weeks ago and tried Cipro and Flagyl he never really resolved from that switch Augmentin hydrocodone Zofran given follow-up with primary care return if has problems. Lab Data: Labs: Lab Results 02/04/21 02/04/21 02/04/21 13:44 13:44 16:05 WBC 16.9 10^3/uL H 10 ^3/uL (4.0-10.0) RBC 4.07 10^6/uL L 10 ^6/uL (4.1-5.3) Hgb 12.5 g/dL g/dL (11.7-16.6) Hct 37.5 % L % (42.0-52.0) MCV 92.1 fl fl (80-94) MCH 30.7 pg pg (28.0-34.0) MCHC 33.3 g/dL g/dL (30.0-36.0) RDW 13.6 % % (12.1-15.1) Plt Count 226 10^3/cmm 10^3 /cmm (130-400) MPV 10.3 fL fL (7.4-10.4) Neut % (Auto) 72.2 % % Lymph % (Auto) 14.6 % % [place] % (Auto) 11.6 % % Eos % (Auto) 0.6 % % Baso % (Auto) 0.4 % % Neut # (Auto) 12.21 10^3/uL H 1 0^3/uL (1.8-7.7) Lymph # (Auto) 2.5 10^3/uL 10^3/ uL (0.8-4.8) [place] # (Auto) 2.0 10^3/uL H 10^ 3/uL (0.2-0.9) Eos # (Auto) 0.1 10^3/uL 10^3/ uL (0.0-0.8) Baso # (Auto) 0.1 10^3/uL 10^3/ uL (0.0-0.1) Nucleated RBC % (a uto) 0 % % Nucleated RBCs # 0.0 /100WBC /100W BC Sodium 136 mmol/L mmol/L (136-145) Potassium 3.8 mmol/L mmol/L (3.5-5.1) Chloride 98 mmol/L mmol/L (98-107) Carbon Dioxide 25 mmol/L mmol/L (22-29) Anion Gap 16.8 (5-19) BUN 24 mg/dL H mg/dL (8-23) Creatinine 1.3 mg/dL H mg/dL (0.7-1.2) GFR Calculation Not Reportable Glucose 115 mg/dL mg/dL (65-115) Calculated Osmolal ity 287 mOsm/kg mOsm/ kg (285-295) Calcium 9.4 mg/dL mg/dL (8.5-10.5) Total Bilirubin 0.6 mg/dL mg/dL (0.15-1.2) AST 16 U/L U/L (0-40) ALT 15 U/L U/L (0-41) Alkaline Phosphata se 75 IU/L IU/L (40-130) Total Protein 7.4 g/dL g/dL (6.6-8.7) Albumin 4.1 g/dL g/dL (3.5-5.2) Globulin 3.3 g/dL g/dL (1.3-4.6) Lipase 18 U/L U/L (13-60) Urine Color Yellow (Yellow) Urine Appearance Clear (CLEAR) Urine pH 5 (5-7) Ur Specific Gravit y 1.010 (1.005-1.030) Urine Protein 1+ H (Negative) Urine Glucose (UA) Norm (Normal) Urine Ketones 1+ H (Negative) Urine Blood Neg (Negative) Urine Nitrate Negative (Negative) Urine Bilirubin 1+ H (Negative) Urine Urobilinogen 1 mg/dL H mg/dL (Negative) Ur Leukocyte Dee ase 2+ H (Negative) Urine RBC 5-10 /hpf H /hpf (0-2) Urine WBC 5-10 /hpf H /hpf (0-5) Ur Squamous Epith Cells 15-25 /hpf H /hpf (0-5) Amorphous Sediment Not Reportable Urine Bacteria 1+ /hpf H /hpf (NONE) Urine Mucus 3+ /hpf /hpf Discharge Plan Discharge Patient Disposition: Home Clinical Impression: Diverticulitis Condition: Stable Prescriptions: New hydrocodone-acetaminophen 5-325 mg tablet 1 tab PO Q6H PRN (Reason: pain) Qty: 20 RF: 0 Zofran 4 mg tablet 4 mg PO Q6H PRN (Reason: nausea and vomiting) Qty: 20 RF: 0 Augmentin 875-125 mg tablet 1 tab PO BID Qty: 20 RF: 0 No Action amlodipine 5 mg tablet 5 mg PO DAILY RF: 0 atenolol 50 mg tablet 50 mg PO DAILY RF: 0 atorvastatin 20 mg tablet 20 mg PO DAILY RF: 0 brimonidine 0.15 % drops 1 drop ophthalmic (eye) Q8H RF: 0 bupropion HCl 300 mg tablet extended release 24 hr 300 mg PO QAM RF: 0 lisinopril 40 mg tablet 40 mg PO DAILY RF: 0 metformin 500 mg tablet 250 mg PO BID RF: 0 tamsulosin 0.4 mg capsule 0.4 mg PO DAILY RF: 0 famotidine 10 mg tablet 10 mg PO DAILY RF: 0 Cipro 500 mg tablet 500 mg PO BID Qty: 14 RF: 0 Discharge Orders: Discharge ED (Routine); Ordered 02/04/21 Ordered By: Zay Oshea Referrals: Ruthy Carrillo MD [Primary Care Provider] - Discharge Diet: Usual diet Discharge Activity: Increase activity as tolerated Patient Instructions: Opioid Safety Activity Restrictions/Additional Instructions: Clear liquid diet for 24 to 48 hours and advance as tolerated. Take small amounts of food with antibiotics. Follow-up with your doctor within the next week. Coding Level of Care Code ED Independent Marketing Consultant for Kade Fwd Exam Comprehensive
--- NOTE | 2021-02-04 15:29 | CT_ITS ---
WS: [id number] CT ABDOMEN AND PELVIS WITH CONTRAST HISTORY: Abdominal pain. TECHNIQUE: Imaging performed of the abdomen and pelvis with IV contrast. Single phase imaging of the abdomen. Coronal and sagittal reformats are submitted. All CT scans at [facility] use at [address] one of these dose optimization techniques: automated exposure control; mA and/or kV adjustment per patient size (includes targeted exams where dose is matched to clinical indication); or iterative re construction. IV CONTRAST: Visipaque 320; 95 mL IV. Oral contrast: No DLP: 1543.48 mGy.cm COMPARISON: 01/15/2021 Lower thorax: Chronic emphysematous changes at the lung bases. Heart is normal size. No hiatal hernia . Liver/biliary system: Numerous low-attenuation masses throughout the liver from hepatic cyst disease. No solid mass. Gallbladder: Normal. No gallstones or wall thickening. No pericholecystic fluid. Pancreas: Mild atrophy. No mass or duct dilatation. Spleen: Small caliber spleen is probably undergone prior infarction or partial splenectomy. Central c alcifications are noted within the remaining spleen. Adrenal glands: Normal. Right kidney: Normal size RIGHT kidney. There are multiple cysts of various sizes throughout the kidn ey. Largest cyst in the lower pole maximum diameter 5.8 cm. No obstruction or solid mass. Left kidney: Mild perinephric stranding with numerous low-attenuation masses. These are too small to characterize. Others are cysts or mildly complex cysts which are stable. No obstruction. 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 Aorta: Patient has known aortic dissection beginning at the level of the diaphragm and extending infe riorly to the aortic bifurcation extending into the proximal RIGHT common iliac artery. There has bee n no progression of this dissection. Heavily calcified aorta. Both false lumen and the true lumen are enhancing. Bilateral renal arterial stents are patent. Heavy calcification continues into the iliac arteries with ectasia and dilatation. Lymphadenopathy: None. Free fluid: None. GI tract: Prior appendectomy. Tortuous overlapping loops of GI tract. There are numerous diverticula in the sigmoid colon with adjacent inflammation. Mild inflammation with no abscess or free air. Abdominal wall: Unremarkable abdominal wall. No hernia. Pelvis: Prostate seed implants. No free fluid in the pelvis or adenopathy. Urinary bladder is normal. Bones: Severe lumbar spondylitic changes. No destructive bone lesions. CT/CT abdomen pelvis w con* [id number] IMPRESSION: 1. Stable dilatation of the abdominal aorta and stable aortic dissection. Enha ncement of both false and true lumens with no interval change or progression. 2. Extensive sigmoid diverticulosis with mild acute diverticulitis. No free ai r or abscess. 3. Hepatic and renal cysts. 4. Normal gallbladder. 5. Prior appendectomy.
[2021-02-04] MEDS: iodixanol 320 mg/mL 100mL Btl IV (15:44)
[2021-02-04 16:26] LABS: Add Urine Microscopic? YES; Bilirubin Urine 1+ (Negative); Blood Urine Neg (Negative); Glucose Urine UA Norm (Normal); Ketones Urine 1+ (Negative); Leukocyte Esterase Urine 2+ (Negative); Nitrate Urine Negative (Negative); Protein Urine 1+ (Negative); Urine Appearance Clear (CLEAR); Urine Color Yellow (Yellow); Urobilinogen Urine 1 mg/dL (Negative); pH Urine 5 (5-7)
[2021-02-04 16:41] LABS: Add Urine Culture? No; Bacteria Urine 1+ /hpf; Mucus Urine 3+ /hpf; Squamous Epithelial Cell Urine 15-25 /hpf (0-5)
== END 2021-02-04 16:37 | disposition home or self-care (01) ==
PROVIDERS: Nurse Practitioner Family; Emergency Provider Family Medicine; PCP Family Medicine
DX: K57.32 Diverticulitis of large intestine without perforation or abscess without bleeding (principal); E78.5 Hyperlipidemia, unspecified; I10 Essential (primary) hypertension; E11.9 Type 2 diabetes mellitus without complications; Z87.891 Personal history of nicotine dependence; Z79.84 Long term (current) use of oral hypoglycemic drugs
CPT/HCPCS: 36415; 74177; 80053; 81001; 83690; 85025; 99283; Q9967

== ENCOUNTER 2021-06-23 08:18 | Outpatient (CLI) | payer OTHER, SELFPAY ==
--- NOTE | 2021-06-23 08:30 | CT_ITS ---
WS: [id number] CTA CHEST, ABDOMEN AND PELVIS. HISTORY: Dissection follow-up. Renal stents. Lung nodule. TECHNIQUE: CT angiogram is performed through the chest, abdomen and pelvis. Precontrast and angiograp hic imaging. Sagittal and coronal reformats have been submitted. MIP imaging also reviewed. All CT s cans at [facility] use at least one of these dose optimization techniques: automated exposure control; mA and/or kV adjustment per patient size (includes targeted exams where dose is matched to c linical indication); or iterative reconstruction. Contrast: Omnipaque 350; 95 cc IV. DLP: 2542.58 mGy-cm. COMPARISON: 02/04/2021, 01/15/2021 and 10/27/2020 Chest CTA: Very minimal increase in size of the well-rounded nodule at the RIGHT lung apex now measur ing 17 x 14 mm as compared to 15 x 14 mm. No additional pulmonary nodules. Thoracic aorta is markedly ectatic atherosclerotic plaque maximum ascending aorta 4.6 cm diameter. No significant increase in s ize since the most recent exams. Great vessels are well-opacified. Again noted is the aortic dissecti on, type B involving the distal descending aorta just above the diaphragm. The true and false lumens are both enhancing. The distal thoracic aorta is ectatic and extends towards the midline. No proximal progression of the dissection. Heart size is moderately enlarged. No filling defect or thrombus in t he LEFT atrial appendage. Normal pulmonary artery with no thrombus. Abdomen CTA: Tortuous aorta. There is continued enhancement of the true and false lumens. The false l umen is smaller caliber in the celiac axis, SMA and renal arteries arise from the false lumen. The la rger lumen is more posterior and also normally enhancing. Dissection continues into the lower thoraci c aorta continues into the proximal RIGHT common iliac artery. No progression or increase in size. At herosclerotic plaque continues into the iliac arteries with ectasia and mild dilatation. No focal ane urysm. Small hiatal hernia. Small low-attenuation lesions within the liver consistent with cysts. These have been present on prior examinations. Gallbladder is negative. Spleen is calcified and atrophic. No ad renal mass. Marked atrophy of the pancreas. Kidneys remain normal size. There are bilateral renal cys ts. No solid mass or obstruction. Some of these cystic masses have mild increased signal suggests the se are probably complex cyst. Overall no increase in size over several prior examinations. Bilateral renal artery stents they are patent. No GI tract obstruction. Numerous diverticula in the descending and sigmoid colon. Pelvic CTA: Good opacification of the iliac arteries. Focal dissection extends into the proximal RIGH T common iliac artery. Otherwise there is ectasia and dilatation but no aneurysm of the internal and external iliac arteries. No free fluid or adenopathy. Brachytherapy seeds are present within the pros hayes. Urinary bladder wall mildly thickened. Similar to the prior studies. Advanced degenerative changes of the thoracic and lumbar spines. Partial disc fusion at L1-2. Retroli sthesis by 3 mm of L2 and L3. No fractures. CT/CT angio chest abdomen pelvis IMPRESSION: 1. 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 No interval change. Both the false and true lumens remain patent. 2. Bilateral proximal renal artery stents are patent. 3. 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 Simila r to prior studies dating back to 06/13/2018. 4. Minimal increase in size of the pulmonary nodule at the RIGHT apex. Nodule measures 17 x 14 mm as compared to 15 x 14 mm on the prior examination from 10/27. 5. Hepatic and renal cysts. 6. Extensive diverticulosis without acute diverticulitis.
[2021-06-23 09:04] LABS: Blood Urea Nitrogen 22 mg/dL (8-23)
[2021-06-23] MEDS: iohexol 350 mg/mL 100 mL Btl IV (09:25)
== END 2021-06-23 08:19 | disposition home or self-care (01) ==
PROVIDERS: PCP Family Medicine; Visit Provider Thoracic Surgery (Cardiothoracic Vascular Surgery)
DX: Z98.890 Other specified postprocedural states (principal); N28.1 Cyst of kidney, acquired; K76.89 Other specified diseases of liver; K57.90 Diverticulosis of intestine, part unspecified, without perforation or abscess without bleeding; I71.2 Thoracic aortic aneurysm, without rupture; R91.1 Solitary pulmonary nodule
CPT/HCPCS: 71275; 74174; 82565; 84520

== ENCOUNTER → 2021-07-01 10:58 | Outpatient (BNVA) | payer OTHER, SELFPAY | PROVIDERS: PCP Family Medicine; Visit Provider Thoracic Surgery (Cardiothoracic Vascular Surgery) | DX: R91.1 Solitary pulmonary nodule (principal); Z87.891 Personal history of nicotine dependence | CPT/HCPCS: 99213 ==

== ENCOUNTER 2022-01-05 08:53 | Outpatient (CLI) | payer OTHER, SELFPAY ==
--- NOTE | 2022-01-05 09:07 | CT_ITS ---
WS: [id number] CT CHEST TECHNIQUE: Contrast enhanced CT of the chest with coronal and sagittal reformatted images. CLINICAL INFORMATION: pulmonary nodule COMPARISON: June 23, 2021 and PET/CT December 11, 2020 DLP: 1359.[address] scans at [facility] use at least one of these dose optimization techniques: automated e xposure control; mA and/or kV adjustment per patient size (includes targeted exams where dose is matc hed to clinical indication); or iterative reconstruction. FINDINGS: Moderate chronic emphysematous changes. No acute pulmonary infiltrates. No focal pneumonia or pleural fluid. Slight fibrosis in the lingula. Previously described nodule RIGHT lung apex is unchanged in a ppearance measuring 1.8 x 1.5 CM. No mediastinal or hilar lymphadenopathy. Vascular calcification. Coronary calcification. Chronic type B aortic dissection in the descending thoracic aorta extending into the upper abdomen is unchanged i n appearance. A few incidental hepatic cysts. Small esophageal hiatal hernia. Adrenal glands are norm al. Renal cysts are partially visualized. No axillary lymphadenopathy. Thoracolumbar scoliosis. Hyper trophic changes thoracic spine. CT/CT chest w con* [id number] IMPRESSION: 1. RIGHT lung apex nodule is unchanged in appearance measuring 1.8 x 1.5 CM. R ecommend continued surveillance with 6-12 month follow-up. 2. No mediastinal or hilar lymphadenopathy. 3. Stable aneurysmal descending thoracic aorta with chronic dissection appears stable.
[2022-01-05 09:51] LABS: Blood Urea Nitrogen 20 mg/dL (8-23)
--- NOTE | 2022-01-05 11:25 | CTR_ITS ---
PROCEDURE INFORMATION: Exam: CT Abdomen With Contrast Exam date and time: 01/05/2022 9:59 AM Age: 86 years old Clinical indication: Condition or disease; Other: Aortic dissection TECHNIQUE: Imaging protocol: Computed tomography of the abdomen with contrast. Radiation optimization: All CT scans at this facility use at least one of these dose optimization techniques: automated exposure control; mA and/or kV adjustment per patient size (includes targeted exams where dose is matched to clinical indication); or iterative reconstruction. Contrast material: OMNI 350; Contrast volume: 95 ml; Contrast route: INTRAVENOUS (IV); COMPARISON: CT abdomen pelvis w con* [id number] 02/04/2021 3:39 PM RADIATION DOSE METRICS: Total DLP (mGy-cm): 1359.81 FINDINGS: Diaphragm: Hiatal hernia is stable. Liver: Stable hepatic cysts. Gallbladder and bile ducts: Normal. No calcified stones. No ductal dilation. Pancreas: Normal. No ductal dilation. Spleen: Normal. No splenomegaly. Adrenal glands: Normal. No mass. Kidneys and ureters: Stable renal cysts. Stomach and bowel: Visualized stomach and bowel are unremarkable. No obstruction. No mucosal thickening. Intraperitoneal space: Unremarkable. No free air. No significant fluid collection. Vasculature: The aorta remains aneurysmal to level the aortic hiatus at 62 by 51 mm extending into the iliac arteries. The dissection appears to extend anterior laterally and anteriorly is aorta descends. It does appear possibly due it extend into the right common iliac artery however, this is not a true angiogram so I cannot be certain. Aorta does remain dilated and this appears stable. Lymph nodes: Unremarkable. No enlarged lymph nodes. Bones/joints: The severe arthritic changes are again seen in the spine without fracture. Mild listhesis. Soft tissues: Unremarkable. Other findings: The chest will be discussed in a separate dictation. CT/CT abdomen w con* [id number] IMPRESSION: There is likely no change however, this is a non angiographic study of the aorta and abdomen being compared to angiographic study of the abdomen.
== END 2022-01-05 08:54 | disposition home or self-care (01) ==
PROVIDERS: PCP Family Medicine; Visit Provider Family Medicine
DX: I71.00 Dissection of unspecified site of aorta (principal); I71.2 Thoracic aortic aneurysm, without rupture; R91.1 Solitary pulmonary nodule
CPT/HCPCS: 36415; 71260; 74160; 82565; 84520

== ENCOUNTER → 2022-02-02 09:47 | Outpatient (BNVA) | payer OTHER, SELFPAY | PROVIDERS: PCP Family Medicine; Visit Provider Thoracic Surgery (Cardiothoracic Vascular Surgery) | DX: R91.1 Solitary pulmonary nodule (principal) | CPT/HCPCS: 99213 ==

== ENCOUNTER 2022-03-02 10:24 | Outpatient (CLI) | payer OTHER, SELFPAY ==
[2022-03-02] MEDS: iohexol 350 mg/mL 500 mL Btl (per mL) IV (10:30)
--- NOTE | 2022-03-02 10:30 | CT_ITS ---
WS: [id number] CT ABDOMEN WITH CONTRAST HISTORY: Z86.79 - Personal history of other diseases of the circulation. Contiguous single phase 5 mm axial imaging performed to the abdomen. Oral contrast has been provided. Coronal and sagittal reformats are submitted. All CT scans at [facility] use at least one of these dose optimization techniques: automated exposure control; mA and/or kV adjustment per patient size (includes targeted exams where dose is matched to clinical indication); or iterative reconstruct ion. CONTRAST: Omnipaque 350; 95 mL IV. DLP: 826.39 mGy.cm COMPARISON: 01/06/2020, 06/24/2019 Lower thorax: Chronic emphysematous changes at the lung bases. Descending thoracic aortic dissection is reidentified. Incompletely visualized on this CT of the abdomen. Very similar configuration to 06/23. There is ectasia and dilatation of the thoracic aorta through the hiatus. Liver: Normal size liver with numerous small scattered cysts. No solid mass. Gallbladder: Normal. Pancreas: Atrophied. Spleen: Small caliber. Atrophied and infarcted. Adrenals: Normal. Right kidney: Normal enhancement. Multiple cortical cysts with the largest measuring 5.6 x 5.9 cm. No obstruction. Left kidney: Normal enhancement. Stable cortical cysts. Aorta: Patient has a known aortic dissection. Both the false and true lumens are enhancing and opacif ied. Good enhancement of the celiac axis and SMA. Short arterial stents in the renal arteries. Dissec tion continues into the proximal RIGHT common iliac artery. Ectasia with no progression distally. GI tract: Stomach is not distended. No small bowel obstruction. The visualized colon is negative for acute process. No adenopathy or free fluid. Abdominal wall: No hernia. Visualized osseous structures: Advanced degenerative changes of the lumbar spine. Fusion across the L 1-[address]/CT abdomen w con* [id number] IMPRESSION: 1. No significant change in aortic dissection on the imaging submitted. Dissec tion begins in the distal thoracic aorta and extends through the abdominal aort a and into the proximal RIGHT common iliac artery. Both lumens are patent and e nhancing. 2. Bilateral renal cysts. 3. Hepatic cysts. 4. No ischemic changes within the kidneys.
== END 2022-03-02 10:25 | disposition home or self-care (01) ==
LOC: RAD 10:24
PROVIDERS: PCP Family Medicine; Visit Provider Thoracic Surgery (Cardiothoracic Vascular Surgery)
DX: Z86.79 Personal history of other diseases of the circulatory system (principal); Q61.02 Congenital multiple renal cysts; K76.89 Other specified diseases of liver
CPT/HCPCS: 74160

== ENCOUNTER 2022-12-26 09:04 | Outpatient (CLI) | payer OTHER, SELFPAY ==
--- NOTE | 2022-12-26 09:17 | CT_ITS ---
WS: [id number] CT ABDOMEN PELVIS TECHNIQUE: Contrast-enhanced CT of the abdomen and pelvis with coronal and sagittal reformatted image s. CLINICAL INFORMATION: ABNORMAL WEIGHT LOSS/NAUSEA COMPARISON: CT 03/02/2022 DLP: 400.[address] scans at [facility] use at least one of these dose optimization techniques: automated e xposure control; mA and/or kV adjustment per patient size (includes targeted exams where dose is matc hed to clinical indication); or iterative reconstruction. FINDINGS: Lung bases are well aerated. Chronic descending thoracic aorta and abdominal aorta dissection. Celiac and SMA remain patent. Bilateral renal artery stents. Normal renal parenchymal enhancement. No hydro nephrosis. Tortuous abdominal aorta. Densely calcified tortuous and ectatic iliac arteries. 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 AP by transverse. Normal renal parenchymal enhancement. Bilateral renal cysts largest in the RIGHT lower pole unchanged measuring 5.6 x 5.4 cm. Diffuse fatty filtration of the liver. Simple hepatic cyst. Portal vein and splenic vein are patent. Normal gallbladder. Fatty atrophy of the pancreas. Small bladder cystocele. Brachytherapy seeds in the prostate. Sigmoid diverticulosis. No evidence of acute diverticulitis. Tiny fat-containing umbilical hernia. Fat-containing LEFT inguinal hernia. Adva nced spondylitic changes lumbar spine. Slight retrolisthesis L2 on L3. IMPRESSION: 1. Overall no significant changes since 03/02/2022. 2. Stable descending thoracic aortic dissection extending into the abdominal aorta and RIGHT proxima l common iliac artery appears unchanged. Both lumens are enhancing. Celiac and SMA are patent. 3. Bilateral renal stents. Normal renal parenchymal enhancement. 4. Simple bilateral renal cysts. 5. Incidental simple hepatic cysts. 6. Sigmoid diverticulosis. 7. Brachytherapy seeds in the prostate. 8. Tiny fat-containing umbilical hernia. Small fat-containing LEFT inguinal hernia.
[2022-12-26] MEDS: iohexol 350 mg/mL 500 mL Btl (per mL) PO (10:25)
[2022-12-26] MEDS: iohexol 350 mg/mL 500 mL Btl (per mL) IV (10:39)
== END 2022-12-26 09:05 | disposition home or self-care (01) ==
PROVIDERS: PCP Family Medicine; Visit Provider Family Medicine
DX: R63.4 Abnormal weight loss (principal); R11.0 Nausea; I71.012 Dissection of descending thoracic aorta; I71.02 Dissection of abdominal aorta; Z96.0 Presence of urogenital implants; N28.1 Cyst of kidney, acquired; K57.30 Diverticulosis of large intestine without perforation or abscess without bleeding; K42.9 Umbilical hernia without obstruction or gangrene
CPT/HCPCS: 74177; Q9967

== ENCOUNTER → 2023-01-09 11:02 | Outpatient (BNVA) | payer OTHER, SELFPAY | PROVIDERS: PCP Family Medicine; Referring Provider Family Medicine; Visit Provider Student in an Organized Health Care Education/Training Program | DX: M25.552 Pain in left hip; M54.50 Low back pain, unspecified | CPT/HCPCS: 73502; 99203 ==

== ENCOUNTER 2023-02-06 16:13 | Outpatient (CLI) | payer OTHER, SELFPAY ==
--- NOTE | 2023-02-06 | PETR_ITS ---
PROCEDURE INFORMATION: Exam: PET/CT Skull Base to Mid-thigh Exam date and time: 02/06/2023 12:15 PM Age: 87 years old Clinical indication: Condition or disease and abnormal findings; Primary cancer: Prostate cancer; Initial oncological staging assessment; Right lung apex nodule is unchanged in appearance measuring 1.8 x 1.5 cm. Recommend continued. Surveillance with 6-12 month follow-up. Prior surgery; Surgery date: 6+ months; Surgery type: Cabg LABS AND CLINICAL REPORTS: Glucose: 104 mg/dl Treatment strategy for malignancy (PET staging): Initial Staging (PI) TECHNIQUE: Imaging protocol: Following at least four-hour fasting and following the injection of radiopharmaceutical, low dose CT images were obtained. Then, PET images were obtained. Attenuation corrected images were constructed using the CT scan. Fused images of PET and CT were reviewed. The standardized uptake values (SUV) reported below are maximum values within a region of interest, expressed in gm/ml. Exam includes orbital meatal line to mid-thigh. Radiopharmaceutical: 11.67 mCi F-18 FDG (Fluorodeoxyglucose), IV. Time of imaging post radiopharmaceutical administration: 1 hour Injection site: Left antecubital COMPARISON: CT abdomen and pelvis 12/26/2022, CT chest 01/05/2022, PT PET Scan 12/11/2020 10:16 AM FINDINGS: Brain: Visualized brain has normal physiologic uptake. Salivary glands: There is a similar in size rounded soft tissue density nodule in the right parotid gland measuring 1 cm on series 3, image 25, SUV max 2.7 (previously 3.5). Pharynx: No abnormal uptake. Larynx: No abnormal uptake. Lungs, pleura and trachea: Mild dependent streaky density in the lungs is consistent with atelectasis. A solid pleural based right apical nodule is noted measuring 2.2 x 1.7 cm on series 3, image 68, SUV max 1.4 (previously measuring 1.6 x 1.2 cm with a previous SUV max 1.6). Heart: Normal physiologic uptake. Mediastinal space: No abnormal uptake. Liver: No abnormal uptake. Rounded low density structures within the liver are not radiotracer avid involving the right left lobes measuring up to 1.6 cm in diameter in the left lobe on series 3, image 137. These are similar in size and were compatible with simple cysts on the comparison CT of 12/26/2022. Gallbladder and bile ducts: No abnormal uptake. Pancreas: No abnormal uptake. Spleen: No abnormal uptake. Adrenal glands: No abnormal uptake. Kidneys and ureters: Normal physiologic uptake. Non radiotracer avid rounded low-density structures in both kidneys are noted measuring up to 6.2 cm in diameter in the right renal inferior pole. These were consistent with simple cysts on the comparison CT of 12/26/2022. Stomach and bowel: There are scattered colonic diverticula. No abnormal uptake. Reproductive: Radiodense radiotherapy seeds in the prostate gland are present. Vasculature: There are atherosclerotic calcifications throughout the abdomen and pelvis with no evidence of aneurysm. There is persistent uptake along the inferior wall of the aorta at the level of the arch, SUV max 4.8 (previously 6.0) where there is atherosclerotic calcification. Aneurysmal dilatation of the descending thoracic aorta is noted, measuring up to 5 cm on series 3, image 125. Aneurysmal dilatation of the abdominal aorta and the bilateral common iliac arteries appears similar. Previously noted dissection of the abdominal aorta is not well characterized without intravenous contrast. Left renal arterial stents are noted. Lymph nodes: No abnormal uptake. No lymphadenopathy in the head, neck, chest, abdomen, pelvis, and extremities. Bones/joints: No abnormal uptake in the visualized axial and appendicular skeleton. Degenerative disc space narrowing spondylosis throughout the spine is noted. Mild curvature of the lumbar spine convex to the left is noted. Soft tissues: No abnormal uptake in the visualized head, neck, chest, abdomen, pelvis, and extremities. METRICS: Mediastinal blood pool: SUV max 2.7 PET/[facility] INITIAL [id number] IMPRESSION: 1. A right upper lobe nodule is increased in size since the prior PET-CT however it continues to be non radiotracer avid which favors a benign etiology. Non hypermetabolic malignancy cannot be entirely excluded but is a less likely consideration. 2. Decreased mild uptake within a nodule in the region of the right parotid gland (SUV max 2.7, previously 3.5) which favors a benign etiology. 3. Persistent but decreased uptake within regions of atherosclerotic change involving the inferior wall of the aortic arch, likely inflammatory. 4. Simple appearing hepatic cysts. 5. Simple appearing renal cysts. 6. Additional nonurgent findings as detailed above.
== END 2023-02-06 16:14 | disposition home or self-care (01) ==
LOC: RAD 16:15
PROVIDERS: PCP Family Medicine; Visit Provider Family Medicine
DX: C61 Malignant neoplasm of prostate (principal); R91.1 Solitary pulmonary nodule; K11.8 Other diseases of salivary glands
CPT/HCPCS: 78815; A9552

== ENCOUNTER → 2023-02-08 10:00 | Outpatient (BNVA) | payer OTHER, SELFPAY | PROVIDERS: PCP Family Medicine; Visit Provider Thoracic Surgery (Cardiothoracic Vascular Surgery) | DX: R91.1 Solitary pulmonary nodule (principal) | CPT/HCPCS: 99213 ==

== ENCOUNTER → 2023-02-27 09:00 | Outpatient (BNVA) | payer OTHER, SELFPAY | PROVIDERS: PCP Family Medicine; Visit Provider Podiatrist Foot & Ankle Surgery | DX: L84 Corns and callosities (principal); G62.9 Polyneuropathy, unspecified; E11.42 Type 2 diabetes mellitus with diabetic polyneuropathy | CPT/HCPCS: 99203 ==

== ENCOUNTER → 2023-03-29 14:20 | Outpatient (BNVA) | payer OTHER, SELFPAY | PROVIDERS: PCP Family Medicine; Visit Provider Orthopaedic Surgery | DX: M54.42 Lumbago with sciatica, left side (principal); M54.41 Lumbago with sciatica, right side; G89.29 Other chronic pain; M51.36 Other intervertebral disc degeneration, lumbar region; M47.816 Spondylosis without myelopathy or radiculopathy, lumbar region | CPT/HCPCS: 72100; 99204 ==

== ENCOUNTER → 2023-04-03 14:25 | Outpatient (BNVA) | payer OTHER, SELFPAY | PROVIDERS: PCP Family Medicine; Referring Provider Family Medicine; Visit Provider Internal Medicine Pulmonary Disease | DX: R91.1 Solitary pulmonary nodule (principal); Z87.891 Personal history of nicotine dependence | CPT/HCPCS: 99204 ==

== ENCOUNTER 2023-04-24 05:47 | Day surgery (SDC) | payer OTHER, SELFPAY ==
[2023-04-24] VITALS (11 sets, daily range): BP systolic 106–152; BP diastolic 68–87; PULSE 62–83; RESP 16–22; TEMP 36–36.2; O2SAT 91–99; BMI 28.1
--- NOTE | 2023-04-24 06:02 | CT_ITS ---
WS: [id number] CT CHEST TECHNIQUE: Noncontrast CT of the chest with coronal and sagittal reformatted images. CLINICAL INFORMATION: for biopsy purposes COMPARISON: PET/CT 02/06/2023 DLP: [address] scans at [facility] use at least one of these dose optimization techniques: automated e xposure control; mA and/or kV adjustment per patient size (includes targeted exams where dose is matc hed to clinical indication); or iterative reconstruction. FINDINGS: Spiculated irregular nodule RIGHT upper lobe at the lung apex appears stable since the prior PET/CT m easuring 2.3 x 1.7 cm. This measures a few millimeters larger today. Previously this measures 2.1 x 1 .7 cm by my measurements. No mediastinal or hilar lymphadenopathy. Vascular calcification. Coronary calcification. Chronic type B aortic dissection in the descending thoracic aorta extending into the upper abdomen is unchanged i n appearance. A few incidental hepatic cysts. Small esophageal hiatal hernia. Adrenal glands are normal. Renal cyst s are partially visualized. No axillary lymphadenopathy. Thoracolumbar scoliosis. Hypertrophic change s thoracic spine. IMPRESSION: Images obtained for intraoperative guidance purposes
[2023-04-24] MEDS: sodium chloride 0.9% 1,000 ML 30 ML IV (06:24)
[2023-04-24 06:34] LABS: Glucose Point of Care 96 mg/dL (70-110)
--- NOTE | 2023-04-24 07:30 | W.PM.OPSUD ---
Surgery/Procedure H&P Update DATE OF PROCEDURE: April 24, 2023 DATE H&P PERFORMED: 04/03/23 H&P UPDATE INFORMATION: I have reviewed H&P completed within last 30 days, I have examined patient prior to procedure and No changes to prior documentation CHANGES TO PREVIOUS DOCUMENTATION: None PREOP DIAGNOSIS: suspected low grade malignancy PRIMARY INDICATION FOR PROCEDURE: slow growing right upper lobe lesion - to rule out low grade malignancy PLANNED PROCEDURE: Operation Date: 04/24/23 07:00 Proposed Procedures p ION, [id number], [id number], [id number], 10124, 42920, 37202, 09251, 65118, 65380, 30976, 38604, 02404, 06759, 01570,R91.1(Not Applicable) - Ruel Benites MD s Ebus(Not Applicable) - Ruel Benites MD
[2023-04-24] MEDS: lidocaine 1% INJ 10 mL (per mL) XX (07:40)
--- NOTE | 2023-04-24 07:43 | SC_ITS ---
WS: [id number] C-arm fluoroscopy for bronchoscopy, 04/23/2023 Clinical Data: ion Comparison: CT chest, 04/24/2023 Findings: C-arm fluoroscopy views for biopsy of right upper lobe nodule. Impression: Right upper lobe C ARM fluoroscopy images for biopsy of nodule.
--- NOTE | 2023-04-24 08:18 | ANES.PREANE2 ---
Pre-Anesthetic Assessment Height/Weight: Height 1.7 m Weight 81.647 kg Temp Pulse Resp BP Pulse Ox O2 Del Method 96.8 F L 62 16 152/84 99 Room Air 04/24/23 06:21 04/24/23 06:21 04/24/23 06:21 04/24/23 06:21 04/24/23 06:21 04/24/23 06:21 Preop Diagnosis: suspected low grade malignancy Operation Date: 04/24/23 07:00 Proposed Procedures p ION, [id number], [id number], [id number], 82052, 88325, 77597, 91646, 62166, 13605, 64480, 33732, 41879, 94590, 21295,R91.1(Not Applicable) - Ruel Benites MD s Ebus(Not Applicable) - Ruel Benites MD Familial anesthetic complications: none Was Beta Henny taken within 24 hours: N/A Was Clonidine taken within 24 hours: N/A Last intake: Intake Last Liquid Date 04/23/23 Last Liquid Time 20:00 Last Solid Date 04/23/23 Last Solid Time 18:30 Social No alcohol and No tobacco Exam alert, oriented x 3, clear to auscultation bilaterally and regular rate & rhythm Airway Submandibular: within normal limits Cervical ROM: within normal limits Mallampati: Class II Dentition: full CV/HEM Peripheral Vascular Disease (Ao dissection) GI Gastroesophageal Reflux Disease Metabolic Diabetes Mellitus and Hyperlipidemia [facility] Lower Back Pain and Osteoarthritis/DJD Neuropsych Neuropathy Anesthetic Plan ASA status: 3 Anesthesia: General Medications/Allergies Home Medications Medication Instructions Recorded Confirmed Last Taken Type brimonidine 0.15 % eye drops 1 drop ophthalmic (eye) Q8H 02/17/20 04/24/23 04/23/23 History tamsulosin 0.4 mg capsule 0.4 mg PO DAILY 02/17/20 04/24/23 04/23/23 History atorvastatin 20 mg tablet 40 mg PO DAILY 02/02/22 04/24/23 04/23/23 History pantoprazole 40 mg tablet,delayed 40 mg PO DAILY 02/02/22 04/24/23 04/23/23 History release oxybutynin chloride 5 mg tablet 5 mg PO DAILY 02/08/23 04/24/23 04/23/23 History latanoprost 0.005 % eye drops 1 drp ophthalmic (eye) DAILY 04/03/23 04/24/23 04/23/23 History vit C 250 mg-vit E 90 mg-zinc 40 1 tab PO BID 04/13/23 04/24/23 04/23/23 History mg-copper 1 [id number] capsule (PreserVision AREDS-2) Allergies Allergy/AdvReac Type Severity Reaction Status Date / Time No Known Allergies Allergy Verified 04/24/23 06:19 Current Medications Generic Name Dose Route Start Last Admin Trade Name Freq PRN Reason Stop Dose Admin Sodium Chloride 1,000 mls @ 30 mls/hr 04/24/23 06:15 04/24/23 06:24 Sodium Chloride 0.9% IV 04/25/23 06:14 30 mls/hr .Q24H AMY Administration PFSH Anesthesia Medical History Right upper lobe pulmonary nodule History of aortic dissection Diabetes Hyperlipidemia Hypertension Surgical History S/P aortic dissection repair Social History Smoking and tobacco/nicotine status: former use of tobacco/nicotine Quit status (tobacco/nicotine): has quit using Year quit tobacco: 1960 Former quit date comment: 0.5 ppd X 5 years Alcohol intake: current Alcohol intake frequency: few times a month Alcohol type: beer Data Anesthesia Cardiac Studies: Sestamibi Stress Test (Cardiology) 03/09/20
--- NOTE | 2023-04-24 09:26 | XR_ITS ---
WS: [id number] Portable AP upright chest, 04/24/2023 Clinical Data: post ion Comparison: Two-view chest, 12/05/2022 Findings: The right upper lobe mass in the medial aspect of the right apex is well seen. No pneumotho rax is present. There are monitor leads on the chest wall. Impression: Biopsy of the right upper lobe mass with no complications.
--- NOTE | 2023-04-24 09:31 | P.OP_ITS ---
Operative Report Date of procedure: April 24, 2023 Procedure done: -Dx Bronchoscope w/Washings or airway inspection -Dx Bronchoscope w/BAL -Bronch with computer image guided Navigational Bronchoscopy -Bronchoscopy w/Transbronchial lung biopsy(s), single lobe using forceps -Bronchoscopy w/Transbronchial needle aspiration biopsy(s), tracheal, main stem, and/or lobar bronchus -Bronchoscopy w/ therapeutic aspiration of the tracheobronchial tree (clearance of airway secretions, removal of mucus plugs) -EBUS Sampling 1/2 nodes Surgeon: Ruel Benites MD Complications: none Brief History: Mr. Yaron Reyes is 87-year-old male with past medical history of hypertension, hyperlipidemia, diabetes, peripheral neuropathy referred by [facility] for pulmonary nodule. Former smoker with hx of 0.5 ppd X 4 years, quit in 1959. Patient has a right upper lobe pulmonary nodule at least since December 2018- this lesion has been PET negative in November 2020 with activity 1.6. This lesion has been slowly increasing in size over years and more recent PET/CT January 2023 showed size 2.2 cm but SUV 1.4 favoring benign etiology. However non-hypermetabolic malignancy cannot be entirely excluded given its slow growth over years. I have discussed with patient that given increasing in size of the lesion over the years is concerning for low-grade malignancy and we need tissue diagnosis to confirm. For that I have given the option of going for robotic navigational guided biopsy of suspicious lesion as well as endobronchial ultrasound-guided surveillance of hilar/mediastinal lymph nodes. I have explained about the complications like pneumothorax given her significant background emphysema which may require chest tube placement. Bleeding is another possibility, majority of times the bleeding is controlled with instillation of cold saline or diluted epinephrine but extremely rarely to bleeding may not be well controlled, which may result in prolonged intubation and possibly bronchial finesse placement to protect nonbleeding airway, convalescence in ICU, may even need IR embolization. There is also a very small chance of missing the lesion due to technical factors which may result in repeating the procedure. Patient verbalized understanding for the indication of the procedure, nature of the procedure, alternatives, complications, benefits and agreed to do bronchoscopy and biopsies. Procedure: ROBOTIC BRONCHOSCOPY NOTE: Pre-procedure Verification: Prior to the procedure, the patient's identity was verified by full name, date of and medical record number. The patient's identity was verified on all pertinent medical records. Also prior to the procedure, a History and Physical was performed, and patient medications, allergies and sensitivities were reviewed. The patient's tolerance of previous anesthesia was reviewed. The risks and benefits of the procedure and the sedation options and risks were discussed with the patient. All questions were answered and informed consent was obtained. Planning: Using the [email or web address] planning software, this patient?s preoperative CT was loaded onto the system and then target and pathway mapping was performed. This was all done prior to the start of the procedure and appropriate plan verified prior to induction. Anesthesia: General anesthesia was used. Please see anesthesiology documentation for full details. A modified LNVP/Alice Protocol was used for robotic bronchoscopy with rapid Intubation, recruitment maneuvers, Tidal Volume around 8-10mL/Kg [place] Body Weight, and PEEP 10-15 as feasible. Time-Out: Prior to the start of the procedure, the patient's identification, proposed procedure, accurate signed consent, correctly labeled images and records, and need for prophylactic antibiotics were verified by the physician, the nurse, the anesthesiologist and the mainframe programmer analyst in the procedure room. Procedural Details: After obtaining informed consent, The procedure was accomplished without difficulty. The patient tolerated the procedure well. Patient preparation: Patient was placed under general anesthesia. An 8.5 ETT was placed for bronchoscopy. The larynx and vocal cords were not visualized. The trachea was anatomically normal The right sided airway was anatomically normal without endobronchial lesions. thin slightly mucoid appearing secretions. The left sided airway was anatomically normal without endobronchial lesions. thin slightly mucoid appearing secretions. Therapeutic aspiration of the airways, initial encounter, was performed at the right bronchial tree. The therapeutic bronchoscope was then removed. We communicated with the anesthesia team to ensure proper ventilator settings for optimal peripheral bronchoscopy. FIRST LOBE: The Ion Shape Sensing Robotic Assisted Bronchoscope was brought into the field and the process of registration was carried out. The guide catheter was used for peripheral navigational bronchoscopy using the planned pathway into the right upper lobe lesion and was able to be wedged peripherally at a distance of 8 mm away from the target. We locked the catheter position in, and removed the vision probe. We introduced the radial EBUS probe and obtained an weak eccentric signal salt -and-pepper image location relative to the lesion in the same lobe. We confirmed our location with a fluoroscopic C-arm. We then removed the R-EBUS and introduced the biopsy tools starting with a 22G ION bronchoscopic peripheral needle for Transbronchial Needle Aspirations (TBNA). The first pass was not sent for Rapid On Site Evaluation (HILLARY) as we do not have onsite pathology. We continued more biopsies in a cloud format. Transbronchial biopsies of right upper lobe lesion were using forceps. Transbronchial biopsy technique was selected because the sampling site was not visible endoscopically. The sampling device penetrated the full thickness of the bronchial wall to obtain the biopsy of lung tissue. 6 biopsy passes were performed, and the same number of biopsy samples were obtained. Finally, we used a 10cc syringe filled with normal saline connected to the proximal portion of the ION catheter and slowly injected 20 cc and aspirated the contents for a bronchial alveolar lavage of the right upper lobe. The return was cloudy and blood tinged 13 cc . At this point and after confirming the absence of bleeding, we removed the channel. Minimal blood residue was cleared from the airway and the peripheral navigation portion of the procedure was concluded. Empiric cold saline was instilled through the catheter and tamponade held for 1-5 minutes. Next, we turned our attention to linear EBUS staging. An EBUS exam was performed: - Stations 7L were enlarged > 5mm and sampled. - Stations 10L, 11L, 4L, 4R, 10R, and 11R were also scanned but no obvious lymph nodes were identified and thus did not meet criteria for sampling. Level 7 station was identified with the EBUS scope at the medial LMSB/RMSB and 3 passes were made using a 21 G Olympus TBNA needle. Rapid onsite path evaluation (HILLARY) was not utilized for this case. Following completion of all diagnostic and therapeutic procedures, hemostasis was verified. The scope was removed and procedure concluded. Samples: A. Right upper lobe lesion 1. Total of 5 passes were made using needle aspiration ; we do not have onsite pathology and so all the material was placed in formalin for histopathology 2. Targeting the same area 5 passes were made using forceps ; we do not have onsite pathology and so all the material was placed in formalin for histopathology 3. Bronchoscope was wedged at the entrance of the anterior segment of left upper lobe, 20 mL of saline was instilled and returned 13 mL of bronchoalveolar lavage . The fluid was mixed with blood and specks of tissue. Samples for cell count, cytology, cultures B. EBUS guided Fine-needle aspiration biopsies were taken from station 7 ([id number]) 5. Total of 3 passes were made using needle aspiration([id number]) from station 7; all the material was placed in formalin and sent for histopathology Complications: None.The patient was extubated and brought to the PACU in stable condition. Postprocedure chest x-ray: There is no evidence of pneumothorax Disposition: Patient can be discharged home in stable condition. Pt, and family are aware that I am going to call them to update final biopsy results once available. Related Problem List Diagnoses (1) Right upper lobe pulmonary nodule:
[2023-04-24 09:57] LABS: Apprearance, Bronch Wash Cloudy (CLEAR); Color, Bronc Wash Red
[2023-04-24 10:52] LABS: PATH Referral Yes; Total Cells Counted Bronch 200
--- NOTE | 2023-04-24 13:40 | ANE.PACU2 ---
Inpatient post-anesthesia follow up: Airway intact: Yes Vital signs: Temperature 97.1 F Pulse Rate 71 Respiratory Rate 16 Blood Pressure 115/80 Pulse Oximetry 95 Oxygen Delivery Me thod Room Air Oxygen Flow Rate Fraction of Inspir ed Oxygen Hydration adequate: Yes Nausea and vomiting: No Pain level: 2 Mental status: Baseline
[2023-04-24 22:47] LABS: Cyto Order Verification No Order
== END 2023-04-24 10:30 | disposition home or self-care (01) ==
PROVIDERS: PCP Family Medicine; Visit Provider Internal Medicine Pulmonary Disease
PROC: 0BJ08ZZ Inspection of Tracheobronchial Tree, Via Natural or Artificial Opening Endoscopic (ICD-10-PCS; CPT 31622; principal; 2023-04-24 07:00)
PROC: BB4BZZZ Ultrasonography of Pleura (ICD-10-PCS; 2023-04-24 07:00)
DX: R91.8 Other nonspecific abnormal finding of lung field (principal); I10 Essential (primary) hypertension; E11.42 Type 2 diabetes mellitus with diabetic polyneuropathy; E78.5 Hyperlipidemia, unspecified; Z87.891 Personal history of nicotine dependence; K21.9 Gastro-esophageal reflux disease without esophagitis; M19.90 Unspecified osteoarthritis, unspecified site
CPT/HCPCS: 31624; 31627; 31628; 31629; 31645; 31652; 36416; 71045; 71250; 76000; 80503; 82962; 87070; 87205; 88112; 88305; 89050; J1100; J2371; J2405; J2704; J2710; J3010; J3490; J7030

== ENCOUNTER 2023-05-04 09:02 | Outpatient (CLI) | payer OTHER, SELFPAY ==
--- NOTE | 2023-05-04 09:30 | MR_ITS ---
WS: [id number] MRI LUMBAR SPINE NONCONTRAST HISTORY: lumbar pain COMPARISON: Radiograph 03/29/2023 TECHNIQUE: Sagittal and axial multisequence imaging is submitted. Cervical, thoracic and lumbar curvature. C4 anterolisthesis by 3 mm. Disc spaces are narrowed through out the cervical and thoracic spine spines. Moderate LEFT curvature lumbar spine. Disc bases to the lumbar spine are all narrowed and desiccated. Most significant loss of disc space h eight at L1-2. There is bone upon bone at the L1-2 vertebral body. Small amount of reactive marrow ed julián in the adjacent endplates of L3 and L4. Conus terminates normally at L1-2 disc level. L1-L2: Marked osteophytic ridging encroaching upon the ventral thecal sac and subarticular recesses. Moderate bilateral foraminal stenosis. L2-L3: Marked osteophytic ridging, annular disc bulging and facet and ligamentum flavum hypertrophy w ith scoliosis. Severe central, bilateral subarticular recess and foraminal stenosis. L3-L4: Retrolisthesis of L3, osteophytic ridging, disc bulging, ligamentum flavum and facet arthritis . Severe central, bilateral subarticular recess and LEFT foraminal stenosis. Moderate RIGHT foraminal stenosis. L4-L5: Diffuse annular disc bulging with facet and ligamentum flavum hypertrophy. Mild encroachment u sabrina the ventral thecal sac. Mild bilateral subarticular recess stenosis. L5-S1: Diffuse annular disc bulging, osteophytic ridging and facet arthritis. Moderate central, bilat eral subarticular recess and LEFT foraminal stenosis. Bilateral renal cysts. Ectatic atherosclerotic changes within the aorta. IMPRESSION: 1. 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 2. No acute lumbar spine fracture. 3. L1-2: Moderate bilateral foraminal stenosis. 4. L2-3: Severe central, bilateral subarticular recess and foraminal stenosis. 5. L3-4: Severe central, bilateral subarticular recess and LEFT foraminal stenosis. Moderate RIGHT f oraminal stenosis. 6. L4-5: Mild bilateral subarticular recess stenosis. 7. L5-S1: Moderate central, bilateral subarticular recess and LEFT foraminal stenosis.
== END 2023-05-04 09:03 | disposition home or self-care (01) ==
LOC: RAD 09:02
PROVIDERS: PCP Family Medicine; Visit Provider Orthopaedic Surgery
DX: M48.061 Spinal stenosis, lumbar region without neurogenic claudication; M47.816 Spondylosis without myelopathy or radiculopathy, lumbar region; M54.50 Low back pain, unspecified
CPT/HCPCS: 72148

== ENCOUNTER → 2023-10-03 13:01 | Outpatient (BNVA) | payer OTHER, SELFPAY | PROVIDERS: PCP Family Medicine; Visit Provider Internal Medicine Pulmonary Disease | DX: R91.1 Solitary pulmonary nodule (principal) | CPT/HCPCS: 99214 ==

== ENCOUNTER → 2024-02-28 09:15 | Outpatient (BNVA) | payer OTHER, SELFPAY | PROVIDERS: PCP Family Medicine; Visit Provider Podiatrist Foot & Ankle Surgery | DX: L60.3 Nail dystrophy (principal); L84 Corns and callosities; G62.9 Polyneuropathy, unspecified; E11.42 Type 2 diabetes mellitus with diabetic polyneuropathy | CPT/HCPCS: 11056; 11721 ==

== ENCOUNTER → 2024-05-06 10:20 | Outpatient (BNVA) | payer OTHER, SELFPAY | PROVIDERS: PCP Family Medicine; Visit Provider Podiatrist Foot & Ankle Surgery | DX: L60.3 Nail dystrophy (principal); L84 Corns and callosities; G62.9 Polyneuropathy, unspecified; E11.42 Type 2 diabetes mellitus with diabetic polyneuropathy | CPT/HCPCS: 11056; 11721 ==

== ENCOUNTER → 2024-07-07 14:44 | Outpatient (BNVA) | payer OTHER, SELFPAY | PROVIDERS: PCP Family Medicine; Visit Provider Podiatrist Foot & Ankle Surgery | DX: E11.42 Type 2 diabetes mellitus with diabetic polyneuropathy (principal); L60.3 Nail dystrophy; L84 Corns and callosities; G62.9 Polyneuropathy, unspecified | CPT/HCPCS: 11056; 11721; 99213 ==

== ENCOUNTER → 2024-09-22 13:07 | Outpatient (BNVA) | payer OTHER, SELFPAY | PROVIDERS: PCP Family Medicine; Visit Provider Podiatrist Foot & Ankle Surgery | DX: E11.42 Type 2 diabetes mellitus with diabetic polyneuropathy (principal); L60.3 Nail dystrophy; L84 Corns and callosities; G62.9 Polyneuropathy, unspecified; M89.8X7 Other specified disorders of bone, ankle and foot | CPT/HCPCS: 11721; 99213 ==

== ENCOUNTER → 2024-11-25 12:46 | Outpatient (BNVA) | payer OTHER, SELFPAY | PROVIDERS: PCP Family Medicine; Visit Provider Podiatrist Foot & Ankle Surgery | DX: E11.42 Type 2 diabetes mellitus with diabetic polyneuropathy (principal); L60.3 Nail dystrophy; L84 Corns and callosities; G62.9 Polyneuropathy, unspecified; M89.8X7 Other specified disorders of bone, ankle and foot | CPT/HCPCS: 11721 ==

== ENCOUNTER → 2025-02-04 15:49 | Outpatient (BNVA) | payer OTHER, SELFPAY | PROVIDERS: PCP Family Medicine; Visit Provider Podiatrist Foot & Ankle Surgery | DX: E11.42 Type 2 diabetes mellitus with diabetic polyneuropathy (principal); L60.3 Nail dystrophy; L84 Corns and callosities; G62.9 Polyneuropathy, unspecified; M89.8X7 Other specified disorders of bone, ankle and foot | CPT/HCPCS: 11721 ==